=== PATIENT | female | born 1960 | race Caucasian/White ===

== ENCOUNTER 2018-08-17 07:30 | Observation (INO) ==
--- NOTE | 2018-08-17 07:40 | Emergency Department Note ---
Disposition Clinical Impression: Chest pain, Nausea & vomiting, Elevated blood pressure reading Disposition: Admitted As Inpatient Condition: Fair General Adult HPI - General Chief complaint: ED Chest Pain Stated complaint: CP/unable to eat Time Seen by Provider: 08/17/18 07:32 Source: patient, family Limitations: no limitations - History of Present Illness Pain Scale: 8 - Related Data Allergies Allergy/AdvReac Type Severity Reaction Status Date / Time No Known Allergies Allergy Verified 08/17/18 07:31 Past Medical History - Past Medical History Medical history: Reports: no medical history Psychiatric history: Reports: no psych history - Social History Smoking Status: Current some day smoker Smokeless Tobacco Status: No Alcohol use: Reports: none Drug use: Reports: none Physical Exam - General Limitations: no limitations General appearance: alert, in no apparent distress Course Vital Signs Temperature 98.2 F 08/17/18 07:31 Pulse Rate 82 08/17/18 07:31 Respiratory Rate 18 08/17/18 07:31 Blood Pressure 194/121 08/17/18 07:31 O2 Sat by Pulse Oximetry 99 08/17/18 07:31 Temperature 99.0 F 08/17/18 15:57 Pulse Rate 92 08/17/18 15:57 Respiratory Rate 16 08/17/18 15:57 Blood Pressure 160/87 08/17/18 15:57 O2 Sat by Pulse Oximetry 96 08/17/18 15:57 Oxygen Delivery Oxygen Delivery Room Air Medical Decision Making - Lab Data Result diagrams: 08/17/18 08:04 08/17/18 08:04 Lab Results 08/17/18 08/17/18 Range/Units 08:04 08:04 WBC 5.8 (4.3-11.1) K/mcL RBC 4.70 (3.82-4.97) M/mcL Hgb 13.8 (11.5-15.4) g/dL Hct 40.9 (35.3-44.9) % MCV 87.0 (83.0-100.0) fL MCH 29.4 (28.0-33.3) pg MCHC 33.7 (31.6-35.5) g/dL RDW 14.0 (11.5-14.5) % Plt Count 254 (140-400) K/mcL MPV 9.2 L (9.4-12.4) fL Immature Gran % 0.5 (0-4) % Seg Neutrophils % 69.8 % Lymphocytes % 19.7 % Monocytes % 7.9 % Eosinophils % 1.4 % Basophils % 0.7 % Neutrophils # 4.1 (1.6-8.9) K/mcL Lymphocytes # 1.1 (0.6-4.6) K/mcL Monocytes # 0.5 (0.0-1.3) K/mcL Eosinophils # 0.1 (0.0-0.6) K/mcL Basophils # 0.0 (0.0-0.2) K/mcL Sodium 130 L (136-145) mEq/L Potassium 3.7 (3.5-5.1) mEq/L Chloride 97 L (98-107) mEq/L Carbon Dioxide 23 (23-29) mEq/L BUN 15 (6-20) mg/dL Creatinine 0.53 L (0.60-1.20) mg/dL Est GFR ( Amer) > 60 (> 60) Est GFR (Non-Af Amer) > 60 (> 60) BUN/Creatinine Ratio 28 H (6-26) Glucose 131 H (70-105) mg/dL Calculated Osmolality 273 L (280-300) Calcium 9.8 (8.6-10.3) mg/dL Total Bilirubin 0.5 (0.3-1.0) mg/dL Direct Bilirubin 0.1 (0.0-0.2) mg/dL Indirect Bilirubin 0.4 (0.0-1.2) mg/dL AST 22 (13-39) Units/L ALT 24 (7-52) Units/L Alkaline Phosphatase 101 (34-104) Units/L Troponin I < 0.03 (< 0.04) ng/mL Serum Total Protein 7.7 (6.4-8.9) g/dL Albumin 4.5 (3.5-5.7) g/dL Globulin 3.2 (2.4-3.5) g/dL Albumin/Globulin Ratio 1.4 (1.1-2.2) Lipase 12 (11-82) Units/L Attestation Statement - Attestation Attestation: I examined this patient and my medical decision-making was reviewed with the Resident Physician. I agree with the documented findings, disposition and treatment plan as described except to the extent set forth below. [id number] time provided Patient ambulatory to the examination room complaining of chest discomfort as well as nausea and vomiting. Triage vitals indicate hypertension. She appears in no acute distress on exam
[2018-08-17] MEDS ORDERED: Aspirin 81 MG TAB.CHEW PO ONE (07:45)
[2018-08-17] MEDS ORDERED: Ondansetron 4 MG/2 ML VIAL IVP ONE (07:46)
[2018-08-17] MEDS ORDERED: Nitroglycerin 0.4 MG TAB.SUBL SL PRN (07:47)
[2018-08-17] MEDS ORDERED: 0.9 % Sodium Chloride 500 ML IVC ONE (07:47)
--- NOTE | 2018-08-17 07:50 | Emergency Department Note ---
Disposition Clinical Impression: Elevated blood pressure reading Chest pain Qualifiers: Chest pain type: unspecified Qualified Code(s): R07.9 - Chest pain, unspecified Nausea & vomiting Qualifiers: Vomiting type: unspecified Vomiting Intractability: unspecified Qualified Code(s): R11.2 - Nausea with vomiting, unspecified Disposition: Admitted As Inpatient Condition: Fair Referrals: NONE,PCP [Primary Care Provider] - Forms: ED Satisfaction Letter Time of Disposition: 08:58 Chest Pain HPI - General Chief Complaint: ED Chest Pain Stated Complaint: CP/unable to eat Time Seen by Provider: 08/17/18 07:32 Source: patient, family Mode of arrival: ambulatory Limitations: no limitations Vital Signs Reviewed: Yes Nursing Notes Reviewed: Yes - History of Present Illness HPI Narrative: 58-year-old female presents for evaluation of chest pain, nausea vomiting diarrhea. Patient believes she was "food poisoning". States intermittent chest pain 2 days ago. Proximally 6 hours following eating at [employer] that she started has chest pain nausea vomiting and diarrhea. Denies any blood in her stool. States she has not been able to keep anything down. Patient also notes diaphoresis. Patient chest pain is anterior with radiation to her back. Patie nt denies having a cardiac history. Patient also notes nonbloody diarrhea. No abdominal pain. Denies any fevers. Denies any dyspnea. No cough. Patient states she does not have a primary care doctor. Denies any known history of elevated blood pressure. Denies any history of DVT or PE. Continues to smoke. Severity scale (1-10): 8 - Related Data Allergies Allergy/AdvReac Type Severity Reaction Status Date / Time No Known Allergies Allergy Verified 08/17/18 07:31 All systems ED: reviewed and negative except as stated. Constitutional: Denies: fever Cardiovascular: Reports: chest pain Respiratory: Denies: cough, dyspnea Gastrointestinal: Reports: nausea, vomiting, diarrhea. Denies: abdominal pain Chest Pain PMH - Past Medical History Medical history: Reports: no medical history Psychiatric history: Reports: no psych history - Social History Smoking Status: Current some day smoker Alcohol use: Reports: none Drug use: Reports: none Physical Exam - General Limitations: no limitations General appearance: alert, in no apparent distress - Head Head exam: atraumatic, normocephalic, normal inspection - Eye Eye exam: Present: normal appearance, PERRL, EOMI - ENT ENT exam: normal exam, normal oropharynx, mucous membranes moist - Neck Neck exam: Present: normal inspection - Chest Chest inspection: Present: normal inspection, symmetric chest wall rise - Respiratory Respiratory exam: Present: normal lung sounds bilaterally. Absent: respiratory distress - Cardiovascular Cardiovascular exam: Present: regular rate, normal rhythm. Absent: systolic murmur - Abdominal Exam Abdominal exam: Present: soft, Non-Tender - Extremities Exam Extremities exam: Present: normal inspection. Absent: pedal edema - Back Exam Back exam: Present: normal inspection - Neurological Exam Neurological exam: Present: alert, oriented X3, CN II-XII intact - Skin Skin exam: Present: warm, dry, intact, normal color Course Course Narrative: Will get a cardiac workup. - Reevaluation(s) Reevaluation #1: Patient blood pressure and chest pain improved following nitro. Time: 08:18 Reevaluation #2: Patient seen and examined resting comfortably. Time: 08:56 Vital Signs Temperature 98.2 F 08/17/18 07:31 Pulse Rate 82 08/17/18 07:31 Respiratory Rate 18 08/17/18 07:31 Blood Pressure 194/121 08/17/18 07:31 O2 Sat by Pulse Oximetry 99 08/17/18 07:31 Temperature 98.2 F 08/17/18 07:31 Pulse Rate 82 08/17/18 08:14 Respiratory Rate 18 08/17/18 08:14 Blood Pressure 159/87 08/17/18 08:14 O2 Sat by Pulse Oximetry 94 08/17/18 08:14 Oxygen Delivery Oxygen Delivery Room Air Chest Pain - [facility] Narrative Medical decision making narrative: Patient presented for concerns of chest pain nausea vomiting diarrhea. Patient initially felt that it was related foodborne poisoning however given the duration of symptoms over the past 2 days without any other known ill contacts related to the food poisoning makes foodborne illness less likely. Initial concerns for ACS unstable angina. Patient's having chest pain nausea vomiting and diaphoresis. Patient was noted to have elevated blood pressures at triage. Does not have primary care follow-up. Patient's blood pressure as well as chest pain improved during the ED course. EKG shows no acute changes. Patient does have a moderate risk heart score. Given these findings and the findings with the patient's pain improved with poor outpatient follow-up the patient will get serial troponins and continued cardiopulmonary monitoring. Patient's symptoms are not consistent with a PE or dissection. - Lab Data Lab results reviewed: Yes I reviewed the patient's lab results. Result diagrams: 08/17/18 08:04 08/17/18 08:04 Lab Results 08/17/18 08/17/18 Range/Units 08:04 08:04 WBC 5.8 (4.3-11.1) K/mcL RBC 4.70 (3.82-4.97) M/mcL Hgb 13.8 (11.5-15.4) g/dL Hct 40.9 (35.3-44.9) % MCV 87.0 (83.0-100.0) fL MCH 29.4 (28.0-33.3) pg MCHC 33.7 (31.6-35.5) g/dL RDW 14.0 (11.5-14.5) % Plt Count 254 (140-400) K/mcL MPV 9.2 L (9.4-12.4) fL Immature Gran % 0.5 (0-4) % Seg Neutrophils % 69.8 % Lymphocytes % 19.7 % Monocytes % 7.9 % Eosinophils % 1.4 % Basophils % 0.7 % Neutrophils # 4.1 (1.6-8.9) K/mcL Lymphocytes # 1.1 (0.6-4.6) K/mcL Monocytes # 0.5 (0.0-1.3) K/mcL Eosinophils # 0.1 (0.0-0.6) K/mcL Basophils # 0.0 (0.0-0.2) K/mcL Sodium 130 L (136-145) mEq/L Potassium 3.7 (3.5-5.1) mEq/L Chloride 97 L (98-107) mEq/L Carbon Dioxide 23 (23-29) mEq/L BUN 15 (6-20) mg/dL Creatinine 0.53 L (0.60-1.20) mg/dL Est GFR ( Amer) > 60 (> 60) Est GFR (Non-Af Amer) > 60 (> 60) BUN/Creatinine Ratio 28 H (6-26) Glucose 131 H (70-105) mg/dL Calculated Osmolality 273 L (280-300) Calcium 9.8 (8.6-10.3) mg/dL Total Bilirubin 0.5 (0.3-1.0) mg/dL Direct Bilirubin 0.1 (0.0-0.2) mg/dL Indirect Bilirubin 0.4 (0.0-1.2) mg/dL AST 22 (13-39) Units/L ALT 24 (7-52) Units/L Alkaline Phosphatase 101 (34-104) Units/L Troponin I < 0.03 (< 0.04) ng/mL Serum Total Protein 7.7 (6.4-8.9) g/dL Albumin 4.5 (3.5-5.7) g/dL Globulin 3.2 (2.4-3.5) g/dL Albumin/Globulin Ratio 1.4 (1.1-2.2) Lipase 12 (11-82) Units/L - Radiology Data Radiology results reviewed: Yes I reviewed the patient's radiology results. Chest X-Ray 08/17/18 07:45 IMPRESSION: No acute cardiopulmonary process. D/ / 08/17/2018 08:23:22 Tera Haley MD / Pallavi Guardado Interpreting Provider: Tera Haley MD - EKG Data EKG attestation: Yes I reviewed and interpreted this EKG. EKG shows normal: sinus rhythm Rate: normal Rhythm: NSR [place]/QRS: normal Interpretation: no acute changes Heart Score - Score History: Highly Suspicious EKG: Normal Age: 45-65 Risk Factors: 1-2 risk factors Troponin: Less than normal limit HEART Score Total: 4 S.B.ANick - [email or web address] Situation: Demographics Background: Presenting Complaint Assessment: Vital Signs, Course and respsone to treatment, Patient/Family Expectation Recommendation: Barrier(s) to disposition, Recommendation based on pending studies, treatments, or consults S.B.ANick Report Given to: Dr. Papo Smith Time: 09:15
[2018-08-17 08:27] LABS: Basophils % 0.7 %; Eosinophils # 0.1 K/mcL (0.0-0.6); Eosinophils % 1.4 %; Hematocrit 40.9 % (35.3-44.9); Hemoglobin 13.8 g/dL (11.5-15.4); Immature Granulocytes % 0.5 % (0-4); Lymphocytes # 1.1 K/mcL (0.6-4.6); Lymphocytes % 19.7 %; Mean Corpuscular HGB Conc 33.7 g/dL (31.6-35.5); Mean Corpuscular Hemoglobin 29.4 pg (28.0-33.3); Mean Platelet Volume 9.2 fL (9.4-12.4); Monocytes # 0.5 K/mcL (0.0-1.3); Monocytes % 7.9 %; Neutrophils # 4.1 K/mcL (1.6-8.9); Platelet Count 254 K/mcL (140-400); Segmented Neutrophils % 69.8 %
[2018-08-17 08:46] LABS: Alanine Aminotransferase 24 Units/L (7-52); Albumin 4.5 g/dL (3.5-5.7); Albumin/Globulin Ratio 1.4 (1.1-2.2); Alkaline Phosphatase 101 Units/L (34-104); Aspartate Amino Transferase 22 Units/L (13-39); BUN/Creatinine Ratio 28 (6-26); Bilirubin,Direct 0.1 mg/dL (0.0-0.2); Bilirubin,Indirect 0.4 mg/dL (0.0-1.2); Bilirubin,Total 0.5 mg/dL (0.3-1.0); Blood Urea Nitrogen 15 mg/dL (6-20); Calcium 9.8 mg/dL (8.6-10.3); Carbon Dioxide 23 mEq/L (23-29); Chloride 97 mEq/L (98-107); Globulin 3.2 g/dL (2.4-3.5); Glucose 131 mg/dL (70-105); Lipase 12 Units/L (11-82); Osmolality,Calculated 273 (280-300); Potassium 3.7 mEq/L (3.5-5.1); Sodium 130 mEq/L (136-145); Total Protein 7.7 g/dL (6.4-8.9); Troponin I < 0.03 ng/mL (< 0.04); eGFR For Non-African Americans > 60 (> 60)
--- NOTE | 2018-08-17 10:37 | Internal Med History&Physical ---
Date of Encounter: 08/17/18 Time of Encounter: 10:46 Internal Medicine - H&P: HPI Chief complaint: N/V/D, chest pain Plans for Post Hospital Care: Home History of present illness: Ms. Borden is a 58 year old female no significant past medical history except asthma in childhood and anxiety came in with complain of nausea vomiting diarrhea since yesterday. Patient felt that she ate spinach in 2-4 hour later she started having nausea vomiting diarrhea likely from food poisoning. Patient had 3 episodes of nonbloody nonbilious vomiting as well as 3-4 episodes of diarrhea. Denied any blood in stools. Denied any abdominal pain or back pain. She has associated chest pain. Her chest pain has been ongoing for many years which she mentioned gets worse whenever she feels stressed out or anxious. Her illness yesterday made her stressed out which brought her pain. Her chest pain is on left side of her chest and occasionally goes to her back. Denies any radiation to left arm. Has occasional lightheadedness and sweating. Currently described the pain as 6/10. She mentions her pain is there all the time and it waxes and wanes is constant dull in nature. She had workup done at [facility] in 2009 for chest pain and they remembered as normal. She has not followed up with any physician after that as that discontinued her care and she does not have any primary care physician as well. Patient had workup done in the ER which showed mild hyponatremia, troponin of< 0.03, EKG without any signs of ischemia with some T-wave inversions in lead V2 and V3. Old EKGs unavailable. Her blood pressure was noted to be elevated in the ER in 180/90. Patient got a dose of aspirin 325, Zofran and 500 mL of normal saline in ER. At the time of interviewed patient had about 4/10 of chest pain currently on the left side of her chest. Nausea had resolved mostly. Denies any lightheadedness. Past Med Surg Social Fam HX - Past Medical History Medical history: asthma (grew out) Psychiatric history: no psych history, anxiety - Past Surgical History Surgical History: no surgical history - Social History Smoking Status: Current some day smoker (1 pack/day for 30-35 years) Smokeless Tobacco Status: No Alcohol use: none Drug use: none - Additional Family History Additional family history: No known cardiac history and family. No major medical illness known to her and family. Internal Medicine - H&P: Meds Allergy/AdvReac Type Severity Reaction Status Date / Time No Known Allergies Allergy Verified 08/17/18 07:31 All Systems PM: A 10-system review of systems was performed and is negative for pertinent findings except as documented above in the HPI. - Constitutional Vitals: Temp Pulse Resp BP Pulse Ox 98.3 F 75 20 180/94 95 08/17/18 10:19 08/17/18 10:19 08/17/18 10:19 08/17/18 10:08/17/18 10:27 Exam: Constitutional: Vitals as noted. Conversant. No Apparent Distress. Obese Eyes : Sclera white, conjunctiva clear, no lid lag, PEARLA. ENT : Grossly normal hearing. No JVD, no cervical lymphadenopathy. no thyromegaly or mass. Respiratory : crackles at base b/l. no wheeze or rhonchi Cardiovascular : RRR, +S1, +S2. no murmur, gallop, rubs. No chest wall tenderness GI/Abdominal : Soft, Non-tender, Non-distended, normal bowel sounds, soft, no peritoneal signs. no orgenomegaly or mass appreciated. no hernia. Musculoskeletal: no deformity noted. 1+ pedal edema b/l, pulses palpable and symmetrical in UE/LE. no calf tenderness. Neurological: AO X3, CN II-XII grossly intact, grossly normal motor and sensory exam. Skin: No skin rash, lesions or ulcers noted. Pych: anxious Internal Med - H&P Results - Labs CBC & Chem 7: 08/17/18 08:04 08/17/18 08:04 Labs: Short CBC 08/17/18 Range/Units 08:04 WBC 5.8 (4.3-11.1) K/mcL Hgb 13.8 (11.5-15.4) g/dL Hct 40.9 (35.3-44.9) % Plt Count 254 (140-400) K/mcL Neutrophils # 4.1 (1.6-8.9) K/mcL BMP 08/17/18 08:04 Sodium 130 L Potassium 3.7 Chloride 97 L Carbon Dioxide 23 BUN 15 Creatinine 0.53 L Glucose 131 H Calcium 9.8 Cardiac Enzymes 08/17/18 Range/Units 08:04 Troponin I < 0.03 (< 0.04) ng/mL Liver Function 08/17/18 Range/Units 08:04 Total Bilirubin 0.5 (0.3-1.0) mg/dL Direct Bilirubin 0.1 (0.0-0.2) mg/dL AST 22 (13-39) Units/L ALT 24 (7-52) Units/L Alkaline Phosphatase 101 (34-104) Units/L Albumin 4.5 (3.5-5.7) g/dL - EKG Data -: EKG Interpreted by Myself - Impressions ITS Impressions Chest X-Ray 08/17/18 07:45 IMPRESSION: No acute cardiopulmonary process. D/ / 08/17/2018 08:23:22 Tera Haley MD / Pallavi Guardado Interpreting Provider: Tera Haley MD - Assessment and plan (1) Chest pain Current Visit: Yes Status: Acute Assessment and plan: - Patient chest pain atypical in nature - We will trend troponin. If negative and plan for stress testing. - Obtain an echocardiogram given long-standing chest pain history and some pedal edema. Add BNP to previous lab. Qualifiers: Chest pain type: precordial pain Qualified Code(s): R07.2 - Precordial pain (2) Elevated blood pressure reading Current Visit: Yes Status: Acute Assessment and plan: - We will start patient on amlodipine. IV hydralazine every 8 hr when necessary (3) Nausea & vomiting Current Visit: Yes Status: Acute Assessment and plan: - Nausea vomiting and diarrhea currently resolved - Possibly related to gastroenteritis vs food poisoning - We will monitor off antibiotic as of now. Qualifiers: Vomiting type: unspecified Vomiting Intractability: non-intractable Qualified Code(s): R11.2 - Nausea with vomiting, unspecified (4) Hyponatremia Current Visit: Yes Status: Acute Assessment and plan: - Mild hyponatremia may be related to nausea vomiting and diarrhea - She received 500 mL normal saline in ER. Given some pedal edema and crackles we will hold further fluids and monitor - Time Spent With Patient Total time spent is greater than 50% in coordination of care (as documented) at patient's floor/unit and/or counseling patient:
[2018-08-17] MEDS ORDERED: Ondansetron 4 MG/2 ML VIAL IVP PRN (11:12)
[2018-08-17] MEDS: amLODIPine 5 MG TABLET PO SCH (12:36)
[2018-08-18] MEDS: *HR* Heparin 5,000 UNIT/ML VIAL SQ SCH ×2 (05:57→17:54)
[2018-08-18] MEDS ORDERED: Regadenoson 0.4 MG/5 ML SYRINGE IVP ONE ×2 (06:03→07:32)
[2018-08-18 07:02] LABS: Chol/HDL Ratio 8.4 (0-4.9)
[2018-08-18 08:32] LABS: Estimated Average Glucose 126 mg/dl
[2018-08-18] MEDS: amLODIPine 5 MG TABLET PO SCH (09:22)
[2018-08-18] MEDS: Acetaminophen 325 MG TABLET PO PRN ×3 (09:22→21:21)
--- NOTE | 2018-08-18 19:07 | Internal Med Progress Note ---
Hospitalist Progress Note - Encounter Date of Encounter: 08/18/18 Time of Encounter: 08:00 - Subjective Interval History: Patient seen and examined at bedside. Patient denies any active chest pain at this time however she is concerned about her symptoms. She is very anxious about the symptoms she experienced and is concerned about her heart. She was tearful at times during my exam - Exam Vitals: Temp Pulse Resp BP Pulse Ox 98.4 F 79 14 130/78 96 08/18/18 18:43 08/18/18 18:43 08/18/18 18:43 08/18/18 18:43 08/18/18 18:43 Exam: Gen.: Alert and oriented 3, no acute distress Heart: Regular rate and rhythm, no murmurs, rubs, gallops Lungs: Clear to auscultation bilaterally, no rales, rhonchi, wheezes Abdomen: Soft, nontender, nondistended. Normoactive bowel sounds. Psych: Anxious appearing - Assessment and Plan (1) Chest pain Current Visit: Yes Status: Acute Assessment and Plan: I am concerned given the patient's smoking history and the fact that the pain occurs with exertion and stress. She did attempt to have a stress test this morning however she could not complete the nuclear images due to anxiety. I discussed the options with the patient including attempting the stress test again tomorrow with treatment for anxiety prior to obtaining nuclear medicine images or discharge and follow-up as an outpatient. Patient was agreeable to stay and repeat stress test tomorrow. Restart aspirin (2) Anxiety Current Visit: Yes Status: Acute Assessment and Plan: Patient has significant anxiety regarding her underlying medical condition and pain as well as claustrophobic type symptoms when attempting to obtain a stress test. Patient responded well to verbal reassurance and will order one-time dose of Ativan tomorrow morning prior to her stress test to hopefully allow her to complete the test (3) Nausea & vomiting Current Visit: Yes Status: Acute Assessment and Plan: Resolved. (4) Elevated blood pressure reading Current Visit: Yes Status: Acute Assessment and Plan: Blood pressure under better control. Continue amlodipine 5 mg. (5) Hyponatremia Current Visit: Yes Status: Acute Assessment and Plan: Likely due to poor by mouth intake, mild at 130. Recheck in the morning. - Time Spent with Patient Total time spent is greater than 50% in coordination of care (as documented) at patient's floor/unit and/or counseling patient: Internal Medicine: Result - Labs CBC & Chem 7: 08/17/18 08:04 08/17/18 08:04 Consult Discharge Plan - Plan Referrals: NONE,PCP [Primary Care Provider] - (1) Chest pain Qualifiers: Chest pain type: unspecified Qualified Code(s): R07.9 - Chest pain, unspecified (3) Nausea & vomiting Qualifiers: Vomiting type: unspecified Vomiting Intractability: non-intractable Qualified Code(s): R11.2 - Nausea with vomiting, unspecified
[2018-08-19 05:41] LABS: Basophils % 0.7 %; Eosinophils # 0.2 K/mcL (0.0-0.6); Eosinophils % 4.4 %; Hematocrit 42.6 % (35.3-44.9); Immature Granulocytes % 0.4 % (0-4); Lymphocytes # 2.1 K/mcL (0.6-4.6); Lymphocytes % 38.5 %; Mean Corpuscular HGB Conc 32.9 g/dL (31.6-35.5); Mean Corpuscular Hemoglobin 29.6 pg (28.0-33.3); Mean Corpuscular Volume 90.1 fL (83.0-100.0); Mean Platelet Volume 9.5 fL (9.4-12.4); Monocytes # 0.6 K/mcL (0.0-1.3); Monocytes % 10.5 %; Neutrophils # 2.5 K/mcL (1.6-8.9); Platelet Count 290 K/mcL (140-400); Red Blood Count 4.73 M/mcL (3.82-4.97); Red Cell Distribution Width 14.4 % (11.5-14.5); Segmented Neutrophils % 45.5 %
[2018-08-19 06:02] LABS: BUN/Creatinine Ratio 30 (6-26); Blood Urea Nitrogen 17 mg/dL (6-20); Calcium 9.8 mg/dL (8.6-10.3); Carbon Dioxide 22 mEq/L (23-29); Chloride 107 mEq/L (98-107); Glucose 110 mg/dL (70-105); Magnesium 2.1 mg/dL (1.6-2.6); Osmolality,Calculated 286 (280-300); Potassium 3.8 mEq/L (3.5-5.1); Sodium 137 mEq/L (136-145); eGFR For Non-African Americans > 60 (> 60)
[2018-08-19] MEDS: *HR* Heparin 5,000 UNIT/ML VIAL SQ SCH (06:07)
[2018-08-19] MEDS ORDERED: *HR* LORazepam 2 MG/ML VIAL IVP ONE (06:30)
[2018-08-19] MEDS ORDERED: Regadenoson 0.4 MG/5 ML SYRINGE IVP ONE (08:07)
[2018-08-19] MEDS ORDERED: Aspirin Enteric Coated 81 MG Tablet PO SCH (09:00)
[2018-08-19] MEDS: amLODIPine 5 MG TABLET PO SCH (09:33)
[2018-08-19 11:27] VITALS: BP 166/93
[2018-08-19] MEDS ORDERED: Ipratropium/Albuterol Neb 3 ML IH SCH (12:15)
[2018-08-19] MEDS ORDERED: Azithromycin 250 MG TABLET PO SCH (12:15)
--- NOTE | 2018-08-19 12:20 | Discharge Summary ---
Orders not resulted at time of discharge: Pending orders 08/17/18 07:40 ECG 12 lead ECG [ECG] Stat 08/19/18 06:40 NM ada perf SPECT multi [NM] Routine Date of Encounter: 08/19/18 Time of Encounter: 12:18 - Discharge Diagnosis (1) Cough Priority: Primary Status: Acute (2) Cough Priority: Secondary Status: Acute (3) Cough in adult Priority: Secondary Status: Acute (4) Cough in adult Priority: Secondary Status: Acute Hospital course: Ms. Borden is a 58 year old female no significant past medical history except asthma in childhood and anxiety came in with complain of nausea vomiting diarrhea since yesterday. Patient felt that she ate spinach in 2-4 hour later she started having nausea vomiting diarrhea likely from food poisoning. Patient had 3 episodes of nonbloody nonbilious vomiting as well as 3-4 episodes of diarrhea. Pt had some EKG abnomalites with T wave inversions, pt had trop negative, ACS was r/oed. No further issues, pt told me that she can't cough up the sputum, lungs clear, no sings of CAP, this is likley to be bronchittis, not cardiac origin, the EKG changs like to be incidental findings. If stress test negative, pt will be dsicharged. - Time Spent with Patient Total time spent providing and/or coordinating discharge services: - Discharge Medications Prescriptions: Azithromycin [Azithromycin 6-Tab Pack] 250 mg PO PER PKG DI #6 tab Home Medications: Acetaminophen [Tylenol] 1,000 - 2,000 mg PO QID PRN 08/18/18 [History] Aspirin [Lo-Dose Aspirin EC] 81 mg PO DAILY 08/18/18 [History] Red Yeast Rice 600 mg PO DAILY 08/18/18 [History] Azithromycin [Azithromycin 6-Tab Pack] 250 mg PO PER PKG DI #6 tab 08/19/18 [Rx] Allergies/Adverse Reactions: Allergy/AdvReac Type Severity Reaction Status Date / Time No Known Allergies Allergy Verified 08/17/18 07:31 Date of admission: 08/17/18 09:35 Primary care physician: PCP NONE - Constitutional Vitals: Temp Pulse Resp BP Pulse Ox 98.0 F 77 16 166/93 98 08/19/18 11:24 08/19/18 11:24 08/19/18 11:24 08/19/18 11:24 08/19/18 11:24 General appearance: Present: A&O X 3 Exam: Gen.: Alert and oriented 3, no acute distress Heart: Regular rate and rhythm, no murmurs, rubs, gallops Lungs: Clear to auscultation bilaterally, no rales, rhonchi, wheezes Abdomen: Soft, nontender, nondistended. Normoactive bowel sounds. Psych: Anxious appearing - Head Head exam: Present: atraumatic, normal inspection - Neck Neck exam general surgery: Present: full ROM. Absent: lymphadenopathy, tenderness - Respiratory Respiratory exam: Present: accessory muscle use, CTAB. Absent: chest wall tende rness, decreased breath sounds, prolonged expiratory phase, respiratory distress - Cardiovascular Cardiovascular exam: Absent: bradycardia, clicks, diastolic murmur, distant heart sounds, irregular rhythm - GI/Abdominal GI/Abdominal exam: Present: normal bowel sounds. Absent: bruit, diminished bowel sounds, distended, pulsatile mass, rebound - Patient Status Disposition: Home, Self-Care Condition: Fair - Discharge Instructions Follow Up With: NONE,PCP [Primary Care Provider] -
[2018-08-19] MEDS: Acetaminophen 325 MG TABLET PO PRN (12:35)
== END 2018-08-19 14:13 | disposition home or self-care (01) ==
LOC: 2SOUTHHOLD 07:30 → EMEROOARM 07:30 → SUATTDRO 09:35 → 2SOUTHHOLD 10:26 → 3BNU 08-18 13:18
PROVIDERS: ADMIT Internal Medicine; ATTEND Internal Medicine